=== PATIENT | female | born 1985 | race Two or more races ===

== ENCOUNTER 2025-08-10 16:30 | Outpatient (RCR) | payer MEDICAID, SELFPAY ==
--- NOTE | 2025-07-27 14:23 | PTNOTE_ITS ---
PT OP Initial Eval Patient Information Outpatient Physical Therapy Treatment Date: 07/27/25 Visit Reasons: Left shoulder SURGERY Medical Diagnosis: M25.512 Treatment Dx #1: Decreased L shoulder ROM Treatment Dx #2: L shoulder pain Start of Care: 07/27/25 Date of Onset: 03/27/25 DOS Smoking Status Smoking Status: Never smoker Initial Assessment Subjective: Pt is 40 yr old female s/p L shoulder RCR sx in March. Pt reports pain with sleeping on that side, reaching OH, and lifting things. PMH: none reported Pt goal: to get rid of the L shoulder pain Objective: L shoulder AROM: ? FF: 125 deg ? Abd: 120 deg ? ER: 85 deg ? HBB: to L4 ? Strength: 3+/5 in all planes within available ROM ? PROM: end-range pain Assessment: Pt presents with decreased L shoulder ROM and strength consistent with post op RCR. Pt has moderate tissue irritability with PROM today and requires skilled therapy in order to meet goals and has fair rehab potential. Eval followed by HEP. Short Term and Public Service Director Goals 1. Ind with HEP ? 2. Improved AROM of L shoulder to at least 135 deg FF, 125 deg abduction and 90 deg ? ER ? 3. Improved HBB ROM to L3 ? 4. Pt will reach OH x10 with <=4/10 pain Treatment Plan 1. Manual therapy ? 2. Therex ? 3. Modalities as indicated, moist heat pack, ice, electrical stimulation Frequency and Duration: 2x a week for 12 visits plus evaluation Certification Dates: 07/27/25 to 10/25/25 Procedure Charges OP PT Eval Mod Complex 30 minutes: Yes
--- NOTE | 2025-08-08 17:32 | PT.ODAYNRPT ---
PT Outpatient Daily Note OP Daily Note Outpatient Physical Therapy Treatment Date: 08/08/25 Visit Reasons: Left shoulder SURGERY Subjective: Same as time of evaluation Objective: See f/S for therex Assessment: High tissue irritability with AAROM therex into abduction and ER consistent with adhesions Plan: Improve L shoulder ROM Length of Time (minutes) of Treatment: 30 Minutes Procedure Charges Therapeutic Exercise 30 minutes: Yes
--- NOTE | 2025-08-10 17:18 | PT.ODAYNRPT ---
PT Outpatient Daily Note OP Daily Note Outpatient Physical Therapy Treatment Date: 08/10/25 Visit Reasons: Left shoulder SURGERY Subjective: Pt c/o L shoulder soreness Objective: See f/S for therex Assessment: High tissue irritability with AAROM therex into abduction and ER consistent with adhesions Plan: Improve L shoulder ROM Length of Time (minutes) of Treatment: 30 Minutes Procedure Charges Therapeutic Exercise 30 minutes: Yes
== END 2025-08-25 23:59 | disposition home or self-care (01) ==
LOC: CPTX 16:30
PROVIDERS: PCP Orthopaedic Surgery; Referring Provider Orthopaedic Surgery; Visit Provider Orthopaedic Surgery
DX: M25.512 Pain in left shoulder (principal); Z98.890 Other specified postprocedural states
CPT/HCPCS: 97110; 97162

== ENCOUNTER 2025-09-14 16:30 | Outpatient (RCR) | payer MEDICAID, SELFPAY ==
--- NOTE | 2025-08-29 17:57 | PT.ODAYNRPT ---
PT Outpatient Daily Note OP Daily Note Outpatient Physical Therapy Treatment Date: 08/29/25 Visit Reasons: LEFT SHOULDER SURGERY Subjective: Pt c/o L shoulder soreness Objective: See f/S for therex FF: 135 deg Abd: 140 deg ER: 80 deg Assessment: Less tissue irritability with AAROM therex into abduction and ER and better AROM Plan: Improve L shoulder ROM Length of Time (minutes) of Treatment: 30 Minutes Procedure Charges Therapeutic Exercise 30 minutes: Yes
--- NOTE | 2025-08-31 17:18 | PT.ODAYNRPT ---
PT Outpatient Daily Note OP Daily Note Outpatient Physical Therapy Treatment Date: 08/31/25 Visit Reasons: LEFT SHOULDER SURGERY Subjective: Pt c/o L shoulder soreness but better ROM Objective: See f/S for therex FF: 135 deg Abd: 140 deg ER: 80 deg Assessment: Less tissue irritability with AAROM therex into abduction and ER and better AROM. Gave HEP printout of light resistance therex with theraband Plan: Improve L shoulder ROM and strength Length of Time (minutes) of Treatment: 30 Minutes Procedure Charges Therapeutic Exercise 30 minutes: Yes
--- NOTE | 2025-09-12 18:18 | PT.ODAYNRPT ---
PT Outpatient Daily Note OP Daily Note Outpatient Physical Therapy Treatment Date: 09/12/25 Visit Reasons: LEFT SHOULDER SURGERY Subjective: Pt c/o L shoulder soreness but better ROM Objective: See f/S for therex FF: 135 deg Abd: 140 deg ER: 80 deg Assessment: Less tissue irritability with AAROM therex into abduction and ER and better AROM. Plan: Improve L shoulder ROM and strength Length of Time (minutes) of Treatment: 30 Minutes Procedure Charges Therapeutic Exercise 30 minutes: Yes
--- NOTE | 2025-09-14 17:54 | PT.ODAYNRPT ---
PT Outpatient Daily Note OP Daily Note Outpatient Physical Therapy Treatment Date: 09/14/25 Visit Reasons: LEFT SHOULDER SURGERY Subjective: Pt c/o L shoulder soreness but better ROM Objective: See F/S for therex Assessment: Less tissue irritability with AAROM therex into abduction and ER and better AROM. Plan: Improve L shoulder ROM and strength Length of Time (minutes) of Treatment: 30 Minutes Procedure Charges Therapeutic Exercise 30 minutes: Yes
== END 2025-09-24 23:59 | disposition home or self-care (01) ==
LOC: CPTX 16:30
PROVIDERS: PCP Orthopaedic Surgery; Referring Provider Orthopaedic Surgery; Visit Provider Orthopaedic Surgery
DX: M25.512 Pain in left shoulder (principal); Z98.890 Other specified postprocedural states
CPT/HCPCS: 97110

== ENCOUNTER 2025-10-12 16:30 | Outpatient (RCR) | payer MEDICAID, SELFPAY ==
--- NOTE | 2025-09-26 17:35 | PT.ODAYNRPT ---
PT Outpatient Daily Note OP Daily Note Outpatient Physical Therapy Treatment Date: 09/26/25 Visit Reasons: left arm surgery Subjective: Pt c/o L shoulder soreness but better ROM Objective: See F/S for therex Assessment: Less tissue irritability with AAROM therex into abduction and ER and better AROM. Plan: Improve L shoulder ROM and strength Length of Time (minutes) of Treatment: 30 Minutes Procedure Charges Therapeutic Exercise 30 minutes: Yes
--- NOTE | 2025-10-03 17:34 | PT.ODAYNRPT ---
PT Outpatient Daily Note OP Daily Note Outpatient Physical Therapy Treatment Date: 10/03/25 Visit Reasons: left arm surgery Subjective: Pt c/o L shoulder soreness but better ROM Objective: See F/S for therex Assessment: Less tissue irritability with AAROM therex into abduction and ER and better AROM into FF to about 130 deg Plan: Improve L shoulder ROM and strength Length of Time (minutes) of Treatment: 30 Minutes Procedure Charges Therapeutic Exercise 30 minutes: Yes
--- NOTE | 2025-10-10 17:18 | PT.ODAYNRPT ---
PT Outpatient Daily Note OP Daily Note Outpatient Physical Therapy Treatment Date: 10/10/25 Visit Reasons: left arm surgery Subjective: More L shoulder pain today Objective: See F/S for therex Assessment: Pt had a painful catch at about 115 deg FF that limited AROM today. Plan: Improve L shoulder ROM and strength Length of Time (minutes) of Treatment: 30 Minutes Procedure Charges Therapeutic Exercise 30 minutes: Yes
== END 2025-10-25 23:59 | disposition home or self-care (01) ==
LOC: CPTX 16:30
PROVIDERS: PCP Orthopaedic Surgery; Referring Provider Orthopaedic Surgery; Visit Provider Orthopaedic Surgery
DX: M25.512 Pain in left shoulder (principal)
CPT/HCPCS: 97110